=== PATIENT | male | born 1960 | race Caucasian/White ===

== ENCOUNTER 2017-01-10 11:40 | Emergency (ER) | payer MEDICARE ==
[~2017-01-10] VITALS: Ht 182.9 cm; Wt 105.0 kg
[2017-01-10 13:36] VITALS: BP 165/84
== END 2017-01-10 13:25 | disposition home or self-care (01) ==
LOC: EDUNIT# 11:40 → ED 11:42
DX: G89.21 Chronic pain due to trauma (principal); M54.9 Dorsalgia, unspecified; M54.2 Cervicalgia; M25.511 Pain in right shoulder; Z79.891 Long term (current) use of opiate analgesic; V49.9XXS Car occupant (driver) (passenger) injured in unspecified traffic accident, sequela
CPT/HCPCS: 99282; 99283

== ENCOUNTER → 2017-01-31 | Outpatient (CLI) | payer MEDICARE ==
[~2017-01-31] MED LIST: CLON0.3T PO; FLEC100T2 PO; FLEC150T PO; GBPN100C PO; GBPN300C PO; GLIP10TA13 PO; HUM100IN2 SC; HYDR-3702 PO; HYDR-3708 PO; HYDR-3754 PO; IBUP-1772 PO; INSU100I29 SQ; LISI1TAB10; LISI1TAB10 PO; LISI5TAB; LOVA40TA2 PO; METF500T PO; METF500T4 PO; METO-274 PO; METO-71 PO; PIOG30TA26 PO; SIMV20TA PO; SITA100T PO; WARF1TAB6 PO; WARF5TAB6 PO; [UNRECOGNIZED DRUG - CODE] SQ
--- NOTE | 2017-01-31 10:14 | Diagnostic Imaging Report ---
PROCEDURE: MRI right joint upper extremity without contrast. TECHNIQUE: Multiplanar, multisequence non contrast-enhanced MRI of the right upper extremity was accomplished. INDICATION: Chronic shoulder pain with decreased range of motion. FINDINGS: The study is limited due to persistent tremor throughout the exam by the patient. ROTATOR CUFF: The supraspinatus tendon is intact as is the subscapularis and infraspinatus. HUMERAL HEAD: The humeral head is in normal articulation with the glenoid fossa. The articulating surfaces are smooth. Could not exclude a labral tear from this study as intra-articular contrast was not given and there is too much motion artifact for detail of a small labral tear. There is no joint effusion. There is subcortical cystic change along the humeral tuberosity consistent with chronic tendinopathy. The articulating cartilage along the humeral head is well-preserved as is along the labrum. AC JOINT: There is good alignment of the AC joint. There is considerable hypertrophy the AC joint with large undersurface osteophyte. SOFT TISSUES AND TENDONS: The long head of the biceps is in the bicipital groove and extends to the normal labral attachment. The deltoid muscles appear normal. There is normal bulk of the rotator cuff muscles. IMPRESSION: 1. Limited study due to persistent motion obscuring fine detail. Could not exclude labral tear. 2. Subcortical cystic changes at the humeral tuberosity consistent with chronic tendinopathy. No evidence of full-thickness rotator cuff tear. 3. 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 Dictated by: Dictated on workstation # [id number]
== END ==
LOC: RAD 08:11
PROVIDERS: ATTEND Internal Medicine
DX: M25.511 Pain in right shoulder (principal); R93.6 Abnormal findings on diagnostic imaging of limbs
CPT/HCPCS: 73221